=== PATIENT | female | born 1950 | race Asian ===

== ENCOUNTER → 2017-03-07 | Outpatient (CLI) | payer MEDICARE, OTHER ==
[~2017-03-07] MED LIST: ADVIL200 MG PO; BIAXIN 500MG T500 MG PO; CARAFATE 1GM1 G PO; CIPRO HC OTIC S10 ML OT; DITROPAN XL10 MG PO; GENTAMICIN EYE D5 ML OU; LEVAQUIN 250MG250 MG PO; MUCINEX1200 MG PO; NASONEX SPRAY17 GM NS; NEURONTIN300 MG/CAP PO; NORCO 325 MG-51 TAB PO; PROTONIX 40MG T40 MG PO; PROTONIX TR40 MG PO; SYMBICORT1 AE2 IH; VENTOLIN0.09 MG IH; VOLTAREN GEL 1%1 TU TP; ZYRTEC 10MG10 MG PO
== END ==
LOC: COL.RAD 12:48
DX: M43.16 Spondylolisthesis, lumbar region (principal); M47.816 Spondylosis without myelopathy or radiculopathy, lumbar region; M51.26 Other intervertebral disc displacement, lumbar region

== ENCOUNTER → 2017-04-11 | Outpatient (CLI) | payer MEDICARE, OTHER | LOC: MHCPAIN 09:45 | DX: G89.29 Other chronic pain (principal); M47.817 Spondylosis without myelopathy or radiculopathy, lumbosacral region; M54.16 Radiculopathy, lumbar region | CPT/HCPCS: G0463 ==

== ENCOUNTER → 2017-04-27 | Outpatient (CLI) | payer MEDICARE, OTHER | LOC: MHCPAIN 09:02 | DX: M47.27 Other spondylosis with radiculopathy, lumbosacral region (principal); M48.061 Spinal stenosis, lumbar region without neurogenic claudication; M43.16 Spondylolisthesis, lumbar region | CPT/HCPCS: J1100; Q9967 ==

== ENCOUNTER → 2017-05-09 | Outpatient (CLI) | payer MEDICARE, OTHER | LOC: MHCPAIN 12:37 | DX: G89.29 Other chronic pain (principal); M47.27 Other spondylosis with radiculopathy, lumbosacral region; Z79.82 Long term (current) use of aspirin | CPT/HCPCS: G0463 ==

== ENCOUNTER 2017-06-30 12:45 | Outpatient (RCR) | payer MEDICARE, OTHER | END 2017-08-09 09:25 | disposition home or self-care (01) | LOC: MKS.ESL.PT 12:45 | DX: M51.36 Other intervertebral disc degeneration, lumbar region (principal) | CPT/HCPCS: G0283-GP; G8978-GP; G8979-GP; G8980-GP ==

== ENCOUNTER 2017-11-29 15:35 | Inpatient (IN) | payer MEDICARE, OTHER ==
[~2017-11-29] VITALS: Ht 152.4 cm; Wt 76.8 kg
[~2017-11-29 15:35] MED LIST changes: +00186-0370-20 IH; -SYMBICORT1 AE2 IH
[2018-04-16] MEDS ORDERED: ASPIRIN E.C. 8181 MG PO (08:54)
[2018-04-16] MEDS ORDERED: TYLENOL W/COD1 UDTAB PO (08:55)
[2018-04-16] MEDS ORDERED: VITAMIND3 5000 PO (08:56)
[2018-04-16] MEDS ORDERED: CYMBALTA 30MG30 MG PO (08:57)
[2018-04-16] MEDS ORDERED: FOLIC ACID 11 MG/TA1 PO (08:58)
[2018-04-16] MEDS ORDERED: FERROUS GL325 MG/TAB PO (08:58)
[2018-04-16] MEDS ORDERED: LIDODERM 5% PATC1 EA TP (08:59)
[2018-04-16] MEDS ORDERED: MAGNESIUM200 MG PO (09:00)
[2018-04-16] MEDS ORDERED: SINGULAIR 110 MG/TAB PO (09:03)
[2018-04-16] MEDS ORDERED: PATANOL OPHTHALM5 ML OU (09:04)
[2018-04-16] MEDS ORDERED: REFRESH TEARS 330 ML OP (09:10)
[2018-04-16] MEDS ORDERED: VITAMIN C500 MG PO (09:11)
[2018-04-16] MEDS ORDERED: MUCINEX 60600 MG/TA1 PO (09:11)
[2018-04-16] MEDS ORDERED: MOTRIN 200200 MG/TAB PO (09:13)
[2018-04-17] VITALS (10 sets, daily range): BP systolic 116–160; BP diastolic 68–87; PULSE 63–87; TEMP 97.5–99
[2018-04-17] MEDS ORDERED: LIDODERM 5% PATC1 EA TP (01:18)
[2018-04-18] VITALS (7 sets, daily range): BP systolic 99–177; BP diastolic 58–85; PULSE 74–105; TEMP 97.9–99.7
[2018-04-18 07:12] LABS: HEMOGLOBIN 12.3 g/dl (12.5-16.0)
[2018-04-18 07:13] LABS: HEMATOCRIT 36.6 % (37.0-47.0)
[2018-04-19 04:06] VITALS: BP 140/82; PULSE 99; TEMP 98.7
[2018-04-19 06:17] LABS: HEMOGLOBIN 11.8 g/dl (12.5-16.0)
[2018-04-19 06:27] LABS: HEMATOCRIT 35.8 % (37.0-47.0)
[2018-04-19 08:59] VITALS: BP 137/71; PULSE 105; TEMP 98.7
[2018-04-19 11:46] VITALS: BP 126/65; PULSE 94; TEMP 97.9
[2018-04-19 15:53] VITALS: BP 129/74; PULSE 109
[2018-04-19 19:25] VITALS: BP 128/60; PULSE 104; TEMP 98.5
[2018-04-20 00:36] VITALS: BP 133/73; PULSE 96; TEMP 98.3
[2018-04-20 03:38] VITALS: BP 148/66; PULSE 90; TEMP 98.3
[2018-04-20] MEDS ORDERED: XARELTO10 MG PO (06:40)
[2018-04-20] MEDS ORDERED: TYLENOL 500MG500 MG PO (06:41)
[2018-04-20] MEDS ORDERED: ROXICODONE 55 MG/TAB PO (06:41)
[2018-04-20] MEDS ORDERED: NORCO 325 MG-7.1 TAB PO (06:41)
[2018-04-20] MEDS ORDERED: COLACE 100100 MG/CAP PO (06:42)
[2018-04-20 07:23] VITALS: BP 149/74; PULSE 118; TEMP 98.6
[2018-04-20 12:47] VITALS: BP 130/68; PULSE 97; TEMP 99.3
== END 2018-04-20 14:13 | disposition home health service (06) | DRG 470 ==
LOC: JCC 04-17 05:08
PROVIDERS: Orthopaedic Surgery
PROC: 0SRD0J9 Replacement of Left Knee Joint with Synthetic Substitute, Cemented, Open Approach (ICD-10-PCS; principal; 2018-04-17 07:30)
DX: M17.12 Unilateral primary osteoarthritis, left knee (principal); J45.30 Mild persistent asthma, uncomplicated; E78.5 Hyperlipidemia, unspecified
CPT/HCPCS: A4314; A9284; C1713; C1776; J0690; J2250; J2270; J2704; J3010; J7030; J7120

== ENCOUNTER → 2017-12-01 | Outpatient (CLI) | payer MEDICARE, OTHER ==
[~2017-12-01] MED LIST changes: -00186-0370-20 IH; +SYMBICORT1 AE2 IH
== END ==
LOC: COL.RAD 14:15
DX: J34.89 Other specified disorders of nose and nasal sinuses (principal); R26.89 Other abnormalities of gait and mobility; R41.89 Other symptoms and signs involving cognitive functions and awareness

== ENCOUNTER → 2018-01-08 | Outpatient (CLI) | payer MEDICARE, OTHER | LOC: MHCPAIN 12:34 | DX: G89.29 Other chronic pain (principal); M47.817 Spondylosis without myelopathy or radiculopathy, lumbosacral region; M54.16 Radiculopathy, lumbar region; M53.3 Sacrococcygeal disorders, not elsewhere classified; M48.061 Spinal stenosis, lumbar region without neurogenic claudication | CPT/HCPCS: G0463 ==

== ENCOUNTER → 2018-01-22 | Outpatient (CLI) | payer MEDICARE, OTHER | LOC: MHCPAIN 12:58 | DX: M47.817 Spondylosis without myelopathy or radiculopathy, lumbosacral region (principal); M48.061 Spinal stenosis, lumbar region without neurogenic claudication; M43.16 Spondylolisthesis, lumbar region | CPT/HCPCS: J1100; Q9967 ==

== ENCOUNTER → 2018-02-20 | Outpatient (CLI) | payer MEDICARE, OTHER | LOC: MHCPAIN 12:51 | DX: G89.29 Other chronic pain (principal); M47.817 Spondylosis without myelopathy or radiculopathy, lumbosacral region; M54.16 Radiculopathy, lumbar region; M53.3 Sacrococcygeal disorders, not elsewhere classified; M48.061 Spinal stenosis, lumbar region without neurogenic claudication | CPT/HCPCS: G0463 ==

== ENCOUNTER → 2018-02-26 | Outpatient (CLI) | payer MEDICARE, OTHER | LOC: MHCPAIN 12:36 | DX: M54.16 Radiculopathy, lumbar region (principal) | CPT/HCPCS: J1040; Q9967 ==

== ENCOUNTER → 2018-03-21 | Outpatient (CLI) | payer MEDICARE, OTHER | LOC: COL.VAS 14:16 | DX: Z13.6 Encounter for screening for cardiovascular disorders (principal); M79.661 Pain in right lower leg; M79.89 Other specified soft tissue disorders ==

== ENCOUNTER → 2018-03-21 | Outpatient (CLI) | payer MEDICARE, OTHER | LOC: MHCPAIN 12:43 | DX: G89.29 Other chronic pain (principal); M47.817 Spondylosis without myelopathy or radiculopathy, lumbosacral region; M54.16 Radiculopathy, lumbar region; M53.3 Sacrococcygeal disorders, not elsewhere classified; M48.061 Spinal stenosis, lumbar region without neurogenic claudication | CPT/HCPCS: G0463 ==

== ENCOUNTER → 2018-04-11 | Outpatient (CLI) | payer MEDICARE, OTHER | LOC: COL.VAS 09:45 | DX: Z01.810 Encounter for preprocedural cardiovascular examination (principal); I51.7 Cardiomegaly ==

== ENCOUNTER → 2018-07-18 | Outpatient (CLI) | payer MEDICARE, OTHER ==
[~2018-07-18] MED LIST changes: +00186-0370-20 IH; +ASPIRIN E.C. 8181 MG PO; +COLACE 100100 MG/CAP PO; +CYMBALTA 30MG30 MG PO; +FERROUS GL325 MG/TAB PO; +FOLIC ACID 11 MG/TA1 PO; +LIDODERM 5% PATC1 EA TP; +MAGNESIUM200 MG PO; +MOTRIN 200200 MG/TAB PO; +MUCINEX 60600 MG/TA1 PO; +NORCO 325 MG-7.1 TAB PO; +PATANOL OPHTHALM5 ML OU; +REFRESH TEARS 330 ML OP; +ROXICODONE 55 MG/TAB PO; +SINGULAIR 110 MG/TAB PO; -SYMBICORT1 AE2 IH; +TYLENOL 500MG500 MG PO; +TYLENOL W/COD1 UDTAB PO; +VITAMIN C500 MG PO; +VITAMIND3 5000 PO; +XARELTO10 MG PO
== END ==
LOC: MHCPAIN 10:27
DX: G89.29 Other chronic pain (principal); M47.817 Spondylosis without myelopathy or radiculopathy, lumbosacral region; M54.16 Radiculopathy, lumbar region; M53.3 Sacrococcygeal disorders, not elsewhere classified
CPT/HCPCS: G0463

== ENCOUNTER → 2018-07-26 | Outpatient (CLI) | payer MEDICARE, OTHER | LOC: MHCPAIN 09:10 | DX: M47.817 Spondylosis without myelopathy or radiculopathy, lumbosacral region (principal); M54.16 Radiculopathy, lumbar region | CPT/HCPCS: J1100; Q9967 ==

== ENCOUNTER → 2018-10-24 | Outpatient (CLI) | payer MEDICARE, OTHER | LOC: MHCPAIN 12:40 | DX: G89.29 Other chronic pain (principal); M47.817 Spondylosis without myelopathy or radiculopathy, lumbosacral region; M54.16 Radiculopathy, lumbar region; M48.061 Spinal stenosis, lumbar region without neurogenic claudication | CPT/HCPCS: G0463 ==

== ENCOUNTER → 2019-01-15 | Outpatient (CLI) | payer MEDICARE, OTHER | LOC: MHCPAIN 12:41 | DX: G89.29 Other chronic pain (principal); M47.817 Spondylosis without myelopathy or radiculopathy, lumbosacral region; M54.16 Radiculopathy, lumbar region; M53.3 Sacrococcygeal disorders, not elsewhere classified | CPT/HCPCS: G0463 ==

== ENCOUNTER → 2019-05-27 | Outpatient (CLI) | payer MEDICARE, OTHER | LOC: MHCPAIN 09:43 | DX: G89.29 Other chronic pain (principal); M47.817 Spondylosis without myelopathy or radiculopathy, lumbosacral region; M54.16 Radiculopathy, lumbar region; M53.3 Sacrococcygeal disorders, not elsewhere classified | CPT/HCPCS: G0463 ==

== ENCOUNTER → 2019-05-30 | Outpatient (CLI) | payer MEDICARE, OTHER | LOC: MHCPAIN 08:46 | DX: M47.817 Spondylosis without myelopathy or radiculopathy, lumbosacral region (principal); M54.16 Radiculopathy, lumbar region | CPT/HCPCS: J1100; Q9967 ==

== ENCOUNTER → 2019-06-11 | Outpatient (CLI) | payer MEDICARE, OTHER | LOC: MHCPAIN 12:32 | DX: G89.29 Other chronic pain (principal); M47.817 Spondylosis without myelopathy or radiculopathy, lumbosacral region; M54.16 Radiculopathy, lumbar region; M53.3 Sacrococcygeal disorders, not elsewhere classified; M96.1 Postlaminectomy syndrome, not elsewhere classified; M47.814 Spondylosis without myelopathy or radiculopathy, thoracic region | CPT/HCPCS: G0463 ==

== ENCOUNTER → 2019-07-01 | Outpatient (CLI) | payer MEDICARE, OTHER | LOC: MHCPAIN 12:36 | DX: M51.36 Other intervertebral disc degeneration, lumbar region (principal); M48.061 Spinal stenosis, lumbar region without neurogenic claudication | CPT/HCPCS: J1100; Q9967 ==

== ENCOUNTER → 2019-07-24 | Outpatient (CLI) | payer MEDICARE, OTHER | LOC: MHCPAIN 14:40 | DX: M47.817 Spondylosis without myelopathy or radiculopathy, lumbosacral region (principal); M54.16 Radiculopathy, lumbar region | CPT/HCPCS: G0463 ==

== ENCOUNTER → 2022-09-13 | Outpatient (RCR) | payer MEDICARE, OTHER | END | disposition still patient (30) | LOC: WSST | DX: R13.10 Dysphagia, unspecified (principal); R10.32 Left lower quadrant pain; K21.9 Gastro-esophageal reflux disease without esophagitis ==